=== PATIENT | male | born 1990 | race Two or more races ===

== ENCOUNTER 2025-02-13 09:20 | Emergency (ER) | payer BC, SELFPAY ==
[2025-02-13 09:22] VITALS: BP 146/105
[2025-02-13 09:58] LABS: Hematocrit 48.0 % (39.0-52.0); Hemoglobin 16.6 g/dL (13.0-18.0); Mean Corp Hgb Conc. 34.6 g/dL (33.0-37.0); Mean Corpuscular Volume 80.5 fL (80.0-94.0); Nucleated Red Blood Cells % 0 % (-); Platelet Count 261 10^3/uL (130-400); Red Cell Dist. Width 12.7 % (11.5-14.5)
[2025-02-13 10:10] LABS: ALT (SGPT) 30 U/L (0-50); AST (SGOT) 23 U/L (17-59); Albumin 4.4 g/dl (3.5-5.0); Alkaline Phosphatase 60 U/L (38-126); Blood Urea Nitrogen 18 mg/dl (9-20); Calcium 8.9 mg/dl (8.4-10.2); Carbon Dioxide 29 mmol/L (22-30); Chloride 106 mmol/L (98-107); Glucose 99 mg/dl (70-99); Lipase 99 U/L (23-300); Potassium 4.5 mmol/L (3.5-5.1); Sodium 139 mmol/L (135-145); Total Protein 7.2 g/dl (6.3-8.2); eGFR > 60.00
[2025-02-13] MEDS: NSS 1000 IV (10:19)
[2025-02-13] MEDS: PROTONIX IV 40 MG IV (10:20)
[2025-02-13] MEDS: ZOFRAN 4 MG IV (10:20)
--- NOTE | 2025-02-13 10:22 | ED.GENMED ---
History of Present Illness
General
Chief Complaint: Abdominal Pain
Source: patient
Exam Limitations: none
Time Seen by Provider: 02/13/25 09:46
Nursing documentation reviewed up to this point in time: agreed with
History of Present Illness
History of Present Illness:
34 yr old male presents to the ER complaining of upper abdominal pain diarrhea. He reports last week on Wednesday the day after Thanksgiving he had a lot of burping and diarrhea. That went away in the last night. He complains of intermittent spasms
his upper abdominal region with some gas pains and diarrhea. He denies any radiation of pain. Denies any lower abdominal pain. He was intermittently nauseous. He denies any associated fever or chills. No recent antibiotics. He does take Aleve
every day for ankylosing spondylitis but does not feel that the burning type pain. He has an appoint with GI for this March 01 at an outside hospital.
He is on Wegovy last dose 2 weeks ago no recent increase in dose.
Phy Exam
General Physical Exam
General Presentation: well appearing
General age: appears stated age
General Skin: warm and dry
General Habitus: normal
General Mental: alert
Gastrointestinal Exam
Gastrointestinal Exam: normal bowel sounds, non tender and soft
Musculoskeletal Exam
Musculoskeletal Exam: full ROM
Skin Exam
Skin Exam: normal color and warm/dry
Psychiatric Exam
Psychiatric Exam: normal mood/affect
Course
Orders/Labs/Results
Orders:
Orders
02/13/25 09:49
Complete Blood Count/With Diff Urgent
Comprehensive Metabolic Panel Urgent
Lipase Urgent
02/13/25 10:08
0.9% Sodium Chloride 1000 ml [Nss] 1,000 ml IV BOLUS
Ondansetron Injectable [Zofran] 4 mg IV NOW STA
02/13/25 10:09
US Abdomen Complete/Upper Urgent
Comment:
Reason For Exam: UPPER ABD PAIN
02/13/25 10:16
Pantoprazole [Protonix IV] 40 mg IV NOW STA
02/13/25 11:16
Electrocardiogram (*1) Urgent
Reason for Study: Abdominal Pain
EKG- Treatment ONCE
02/13/25 11:32
Troponin I Urgent
02/13/25 12:43
CT Abd/pelvis W Iv Cont Urgent
Comment:
Reason For Exam: abd pain/diarrhea
Abnormal Lab Results
02/13/25
09:49
Abs Immat Gran (auto) 0.1 H 10^3/uL
(0-0.05)
Absolute Monos (auto) 0.7 H 10^3/uL
(0.1-0.6)
Immature Gran % 0.9 H %
(0-0.5)
Lymphocytes % 17.3 L %
(20.5-51.1)
Eosinophils % 6.1 H %
(0-6)
02/13/25 09:49
02/13/25 09:49
Vital Signs
Initial and Last Documented VS:
Initial Vital Signs
Temp Pulse Resp BP Pulse Ox
99 F 83 20 146/105 98
02/13/25 09:22 02/13/25 09:22 02/13/25 09:22 02/13/25 09:22 02/13/25 09:22
Last Documented Vital Signs
Temp Pulse Resp BP Pulse Ox
98.8 F 77 18 155/91 100
02/13/25 09:49 02/13/25 12:32 02/13/25 12:32 02/13/25 12:32 02/13/25 12:32
MDM/Problems Addressed
MDM/Problems Addressed:
As documented patient is a 34-year-old male with past medical history of ankylosing spondylosis on Wegovy presents for upper abdominal discomfort and diarrhea. He had this the day after Thanksgiving and again recently. No diarrhea here. He denies
any lower abdominal discomfort. Abdomen soft and nontender. He is in no acute distress. He denies any burning type discomfort however complains of intermittent spasming in the upper abdominal region. Ultrasound is negative for cholelithiasis or
dilatation of the biliary tree there is incidental 2.1 cm cyst in the kidney his LFTs are unremarkable including bilirubin no acute findings on EKG cry troponin negative lipase normal pancreas is not completely visualized however no acute distress.
Patient takes Aleve every day for his ankylosing spondylitis is possible gastritis will DC with Protonix to close outpatient follow-up with family doctor. Patient in addition has appointment with GI in the next several weeks.
Upon discharge patient is concerned about discomfort and the abdominal cramping intermittently. CAT scan ordered to rule out colitis. CAT scan shows mesenteric lymph nodes could be associated with enteritis. Will DC with Bentyl for abdominal
cramping and Protonix for upper abdominal discomfort discussed with patient to avoid NSAIDs. I did review with patient that cyst on ultrasound not seen on CAT scan likely artifact.
*Radiology
Radiology exam reviewed: radiology read reviewed
*Pulse Oximetry
SaO2: 98
Oxygen Mode of Delivery: Room air
Patient hypoxic: no
*Critical Care Note
Total Time (30-74mins, 75-104mins- exclusive of procedures): Not Applicable
ED Attending Note
-
Portions of this chart may have been created with voice recognition software.� Occasional wrong word or��sound alike� substitutions may have occurred due to the inherent limitations of voice recognition software.
Discharge Plan
Departure
Patient Disposition: Home (Routine Discharge)
Date of Disposition: 02/13/25
Time of Disposition: 14:56
Patient with high blood pressure during this ER visit?: Yes
Condition: Fair
Covid-19: Not Applicable
Discharge Problem:
Abdominal pain, Diarrhea
Instructions: Diarrhea in teens and adults, Abdominal Pain, BLOOD PRESSURE
Prescriptions:
New
dicyclomine 20 mg tablet
20 mg PO QID PRN (Reason: abdominal cramping ) Qty: 10 0RF
pantoprazole [Protonix] 40 mg tablet,delayed release (DR/EC)
40 mg PO DAILY Qty: 14 0RF
Referrals:
Emile Cantrell MD [Family Provider, Family Practice]
Activity Restrictions/Additional Instructions:
As discussed bland diet. Avoid ibuprofen/NSAIDs and take Tylenol as needed for pain. A prescription for dicyclomine, Bentyl was sent to your pharmacy for abdominal cramping spasm. Take as needed. Also as discussed a prescription for Protonix was
sent to your pharmacy to take daily for the next 2 weeks. Avoid spicy foods caffeine chocolate excetra. Follow-up closely with your family doctor in the next 2 days and GI scheduled. Return if any worsening of symptoms.
Interventions
Interventions:
*Risk Screen - Suicide Last Done: 02/13/25 09:21
*General Assessment Last Done: 02/13/25 09:22
*Neglect/Abuse Screening Last Done: 02/13/25 09:22
[facility] Fall Risk Assessment Tool Last Done: 02/13/25 09:50
HQ-[id number]-[id number] Assessment Last Done: 02/13/25 10:00
Discharge Date and Time
Print Language: SPANISH
[2025-02-13 12:15] LABS: Troponin I < 0.012 ng/ml
[2025-02-13 12:32] VITALS: BP 155/91
[2025-02-13 15:06] VITALS: BP 141/90
== END 2025-02-13 15:07 | disposition home or self-care (01) ==
LOC: EMR 09:20
PROVIDERS: Nurse Practitioner; EMERGENCY PHYSICIAN Emergency Medicine; FAMILY PHYSICIAN Family Medicine
DX: R10.10 Upper abdominal pain, unspecified (principal); R19.7 Diarrhea, unspecified; M45.9 Ankylosing spondylitis of unspecified sites in spine
CPT/HCPCS: 99284; 96374; 96375; 96361; 74177; 76700; 80053; 83690; 84484; 85025; 93005; Q9967